=== PATIENT | male | born 1950 | race African-American/Black ===

== ENCOUNTER 2018-05-19 13:20 | Emergency (ER) | payer OTHER ==
[~2018-05-19] VITALS: Ht 177.8 cm; Wt 84.8 kg
[~2018-05-19 13:20] MED LIST: ATENOLOL25 MG
[2018-05-19] MEDS ORDERED: PNEU16DI2 IJ (13:50)
[2018-05-19] MEDS ORDERED: IRBESARTAN300 MG PO (13:50)
[2018-05-19] MEDS ORDERED: PROPRANOLOL HCL20 MG PO (13:50)
[2018-05-20] MEDS ORDERED: ULTRAM50 MG PO (07:17)
[2018-05-20] MEDS ORDERED: PERCOCET 5-3251 EACH PO (07:23)
== END 2018-05-20 07:36 | disposition home or self-care (01) ==
LOC: ER 13:20
DX: N13.1 Hydronephrosis with ureteral stricture, not elsewhere classified (principal)

== ENCOUNTER 2020-06-03 20:37 | Emergency (ER) | payer OTHER ==
[~2020-06-03] VITALS: Ht 177.8 cm; Wt 84.8 kg
[~2020-06-03 20:37] MED LIST changes: +IRBESARTAN300 MG PO; +PERCOCET 5-3251 EACH PO; +PNEU16DI2 IJ; +PROPRANOLOL HCL20 MG PO; +ULTRAM50 MG PO
[2020-06-03] MEDS ORDERED: AVAPRO150 MG (20:47)
[2020-06-03] MEDS ORDERED: CARVEDILOL3.125 M1 (20:48)
[2020-06-03] MEDS ORDERED: FLECAINIDE ACET50 MG (20:48)
[2020-06-03] MEDS ORDERED: ELIQUIS5 MG (20:48)
== END 2020-06-03 23:33 | disposition home or self-care (01) ==
LOC: ER 20:37
DX: I16.0 Hypertensive urgency (principal); I10 Essential (primary) hypertension

== ENCOUNTER 2021-12-01 17:15 | Emergency (ER) | payer OTHER ==
[~2021-12-01] VITALS: Ht 179.1 cm; Wt 84.8 kg
[~2021-12-01 17:15] MED LIST changes: +AVAPRO150 MG; +CARVEDILOL3.125 M1; +ELIQUIS5 MG; +FLECAINIDE ACET50 MG
[2021-12-01] MEDS ORDERED: LOSARTAN POTAS100 MG PO (17:23)
[2021-12-01] MEDS ORDERED: NORVASC5 MG PO (17:24)
[2021-12-01] MEDS ORDERED: CRESTOR20 MG PO (17:24)
[2021-12-01] MEDS ORDERED: ULTRACET PO (20:57)
== END 2021-12-01 21:40 | disposition home or self-care (01) ==
LOC: ER 17:15
DX: R51.9 Headache, unspecified (principal); I10 Essential (primary) hypertension; Z88.6 Allergy status to analgesic agent; Z88.8 Allergy status to other drugs, medicaments and biological substances

== ENCOUNTER 2025-07-02 13:57 | Emergency (ER) | payer OTHER ==
[~2025-07-02] VITALS: Ht 162.6 cm; Wt 72.6 kg
[~2025-07-02 13:57] MED LIST changes: +CRESTOR20 MG PO; +LOSARTAN POTAS100 MG PO; +NORVASC5 MG PO; +ULTRACET PO
[2025-07-02] MEDS ORDERED: DEXAMETHASONE SODIUM PHOSPHATE 4 MG/ML VIAL IM ONE (16:30)
[2025-07-02] MEDS ORDERED: ACETAMINOPHEN 500 MG GEL..CAP PO ONE (16:30)
[2025-07-02] MEDS ORDERED: ORPHENADRINE CITRATE 30 MG/ML AMPUL IM ONE (16:30)
[2025-07-02 18:23] LABS: BASO % 0.7 % (0.1-1.2); EOS # 0.23 (0.04-0.54); EOS % 2.8 % (0.7-7.0); LYMPH # 1.52 (1.18-3.74); LYMPH % 18.6 % (19.3-53.1); MEAN PLATELET VOLUME 10.60 fl (9.4-12.4); MONO # 0.81 (0.24-0.82); MONO % 9.9 % (4.7-12.5); NEUT # 5.52 (1.56-6.13); NEUT % 67.6 % (34.0-71.1); RED CELL DISTRIBUTION WIDTH 12.7 % (11.6-14.4)
[2025-07-02 18:43] LABS: ALT/SGPT 22.0 U/L (12-78); AST/SGOT 17.0 U/L (15-37); BILIRUBIN TOTAL 0.83 mg/dL (0.3-1.2); BUN CREA RATIO 14.0 (7.0-25.0); CREATININE SERUM 1.45 mg/dL (0.70-1.30); GFR 47.84; GLOBULINA 4.0 G/DL (2.4-3.5); GLUCOSE FASTING 85.0 mg/dL (65-100); OSMOLALITY SERUM 283.0 MOSM/KG (275-295)
[2025-07-02 20:25] LABS: URINE RBC 4.2 uL (0.0-20.8); URINE WBC 2.7 uL (0.0-23.2)
[2025-07-02 20:33] LABS: URINE APPEARANCE Clear; URINE BILIRRUBIN Negative (NEGATIVE); URINE BLOOD Trace; URINE COLOR Yellow; URINE GLUCOSE Negative (NEGATIVE); URINE KETONE Negative (NEGATIVE); URINE LEUKOCYTE Negative; URINE NITRATE Negative; URINE PROTEIN Trace (NEGATIVE); URINE UROBILINOGEN 0.2 E.U./dl
[2025-07-02 20:57] LABS: URINE BACTERIA 1.1 uL (0.0-1933); URINE CAST 0.14 uL (0.0-1.40); URINE EPITHELIAL CELLS 0.9 uL (0.0-38.8)
[2025-07-02] MEDS ORDERED: NORFLEX100MG PO (21:19)
[2025-07-02] MEDS ORDERED: MEDROLPACK PO (21:19)
== END 2025-07-02 21:41 ==
LOC: ER 13:57
PROVIDERS: General Practice
DX: R10.A2 Flank pain, left side (principal); K57.30 Diverticulosis of large intestine without perforation or abscess without bleeding; K76.89 Other specified diseases of liver; M54.50 Low back pain, unspecified; I10 Essential (primary) hypertension; Z88.6 Allergy status to analgesic agent; Z88.8 Allergy status to other drugs, medicaments and biological substances
CPT/HCPCS: 36415; 72100; 74176; 96372; 99284; J1100; J2360